=== PATIENT | male | born 1970 | race Caucasian/White ===

== ENCOUNTER 2020-11-15 07:18 | Outpatient (CLI) | payer MEDICAID ==
[~2020-11-15] VITALS: Ht 177.8 cm; Wt 112.9 kg
[2020-11-15] VITALS (8 sets, daily range): BP systolic 116–130; BP diastolic 73–98; PULSE 75–80; TEMP 98.1
[~2020-11-15 07:18] MED LIST: CLARITIN 1010 MG/TAB PO; EFFEXOR-XR150 MG PO; FIORICET 325 MG1 TAB PO; KOMBIGLYZE XR 11 TE1 PO; LANTUS100 U/ML SC; METFORMIN HCL500 M1 PO; PHENERGAN 25 TA25 MG PO; PROMETHAZINE12.5 M5 PO; VITAMIN C500 MG PO; VITAMIN D1000 IU PO; WELCHOL 625MG625 MG PO; ZESTRIL 20MG TA20 MG PO
[2020-11-15] MEDS ORDERED: MOBIC15 MG PO (08:17)
[2020-11-15] MEDS ORDERED: TRULICITY3 MG/0.5 M SQ (08:17)
[2020-11-15] MEDS ORDERED: NORCO 325 MG-51 TAB PO (08:18)
[2020-11-15] MEDS ORDERED: NATURAL MAGNES200 MG PO (08:19)
[2020-11-15] MEDS ORDERED: MEN'S ONE DAIL1 EACH PO (08:19)
[2020-11-15 08:20] LABS: HEMATOCRIT 51.1 % (42.0-52.0); HEMOGLOBIN 17.7 g/dl (13.5-18.0); MEAN CELL VOLUME 92 fl (80.0-100.0); MEAN CORPUSCULAR HEMOGLOBIN 32 pg (27.0-31.0); MEAN CORPUSCULAR HGB CONC 35 g/dl (33.0-37.0); PLATELET COUNT 185 K/mm3 (130-400); RED BLOOD COUNT 5.53 M/mm3 (4.20-5.60); REDCELL DISTRIBUTION WIDTH-CV 12.6 % (11.5-14.5)
[2020-11-15] MEDS ORDERED: FARXIGA10 PO (08:20)
[2020-11-15] MEDS ORDERED: ZESTRIL 5MG5 MG PO (08:20)
[2020-11-15] MEDS ORDERED: ASPI325T6 PO (08:20)
[2020-11-15 08:21] LABS: ALBUMIN 4.3 gm/dL (3.5-5.0); BILIRUBIN,TOTAL 0.8 mg/dL (0.0-1.0); CREATININE, serum 0.69 (0.66-1.25); MAGNESIUM 1.9 mg/dL (1.6-2.3)
[2020-11-15] MEDS ORDERED: NEURONTIN400 MG/CAP PO (08:21)
[2020-11-15] MEDS ORDERED: LANTUS100 U/ML SQ (08:21)
[2020-11-15 08:23] LABS: INR 1.1 (0.8-3.0); PROTHROMBIN TIME 12.1 SECONDS (9.7-12.8)
[2020-11-15 09:05] LABS: THYROID STIMULATING HORMONE 2.3 uIU/mL (0.465-4.680)
--- NOTE | 2020-11-15 09:15 | NUR ---
Post DAVID report recieved from VIRAL Parks. laboratory miller nurse and Dr. Love now in room to complete loop placement.
[2020-11-15] MEDS ORDERED: CEPHALEXIN500 M1 PO (09:46)
--- NOTE | 2020-11-15 11:10 | NUR ---
DC instructions reviewed with pt and . Both express understanding. Dressing to loop recorder site remains clean, dry and intact. Home cares discussed. Pt taking PO fluids without difficulty. Steady on feet. IV DC'd with catheter intact. He is assisted out with loop equipment and personal belongings by wheelchair to 's car.
== END 2020-11-15 11:10 | disposition home or self-care (01) ==
LOC: COL.RAD 07:18
PROVIDERS: Internal Medicine Adult Congenital Heart Disease
DX: Z86.73 Personal history of transient ischemic attack (TIA), and cerebral infarction without residual deficits (principal)
CPT/HCPCS: C1764; J2704

== ENCOUNTER 2021-03-20 15:10 | Emergency (ER) | payer MEDICAID ==
[~2021-03-20] VITALS: Ht 175.3 cm; Wt 108.2 kg
[~2021-03-20 15:10] MED LIST changes: +ASPI325T6 PO; +CEPHALEXIN500 M1 PO; +FARXIGA10 PO; +LANTUS100 U/ML SQ; +MEN'S ONE DAIL1 EACH PO; +MOBIC15 MG PO; +NATURAL MAGNES200 MG PO; +NEURONTIN400 MG/CAP PO; +NORCO 325 MG-51 TAB PO; +TRULICITY3 MG/0.5 M SQ; +ZESTRIL 5MG5 MG PO
[2021-03-20 15:25] VITALS: TEMP 98.3
[2021-03-20 15:57] LABS: BASO # 0.1 (0.0-0.2); EOS # 0.1 (0.0-0.7); GRAN # 3.1 (1.4-6.5); GRAN % 54.7 % (42.2-75.2); HEMATOCRIT 47.1 % (42.0-52.0); HEMOGLOBIN 16.4 g/dl (13.5-18.0); LYMPH # 1.9 (1.2-3.4); LYMPH % 32.6 % (20.0-51.0); MEAN CELL VOLUME 93 fl (80.0-100.0); MEAN CORPUSCULAR HEMOGLOBIN 32 pg (27.0-31.0); MEAN CORPUSCULAR HGB CONC 35 g/dl (33.0-37.0); MEAN PLATELET VOLUME 9.7 fl (7.4-10.4); MONO # 0.6 (0.1-0.6); MONO % 10.5 % (1.7-9.3); PLATELET COUNT 190 K/mm3 (130-400); RED BLOOD COUNT 5.08 M/mm3 (4.20-5.60); REDCELL DISTRIBUTION WIDTH-CV 11.9 % (11.5-14.5)
[2021-03-20 15:59] LABS: INR 1.1 (0.8-3.0); PROTHROMBIN TIME 12.3 SECONDS (9.7-12.8)
[2021-03-20 16:06] LABS: ALBUMIN 4.5 gm/dL (3.5-5.0); BILIRUBIN,TOTAL 0.6 mg/dL (0.2-1.2); C-REACTIVE PROTEIN 0.3 mg/dL (0.00-0.50); CREATININE, serum 0.87 mg/dL (0.72-1.25); POTASSIUM 4.2 mmol/L (3.5-4.5); TOTAL PROTEIN 8.4 gm/dL (6.2-8.1)
[2021-03-20 17:37] VITALS: BP 128/79; PULSE 69
== END 2021-03-20 17:42 | disposition home or self-care (01) ==
LOC: COL.ER 15:10
PROVIDERS: Family Medicine
DX: R41.3 Other amnesia (principal); R00.2 Palpitations; I10 Essential (primary) hypertension; E11.9 Type 2 diabetes mellitus without complications; Z79.899 Other long term (current) drug therapy; Z86.73 Personal history of transient ischemic attack (TIA), and cerebral infarction without residual deficits; Z79.4 Long term (current) use of insulin

== ENCOUNTER → 2021-08-26 | Outpatient (CLI) | payer MEDICAID ==
[2021-08-26 08:50] LABS: ARTERIAL BLD GAS O2 SATURATION 95.9 % (92-100); ARTERIAL BLOOD GAS BASE EXCESS 2.2 (-2-2); ARTERIAL BLOOD GAS HCO3 26.7 meq/L (22-26); ARTERIAL BLOOD GAS PCO2 41.3 mmHg (35-45); ARTERIAL BLOOD GAS PO2 73.9 mmHg (80-100); ARTERIAL BLOOD GAS pH 7.43 (7.35-7.45)
== END ==
LOC: COL.PUL 08:25
PROVIDERS: Internal Medicine Pulmonary Disease
DX: G47.31 Primary central sleep apnea (principal)

== ENCOUNTER 2021-12-11 07:50 | Emergency (ER) | payer MEDICAID ==
[~2021-12-11] VITALS: Ht 175.3 cm; Wt 113.6 kg
[2021-12-11 07:55] VITALS: BP 130/78; TEMP 98.3
[2021-12-11 08:48] VITALS: PULSE 75
== END 2021-12-11 08:48 | disposition home or self-care (01) ==
LOC: COL.ER 07:50
DX: G89.18 Other acute postprocedural pain (principal); M79.672 Pain in left foot; Z87.891 Personal history of nicotine dependence; Z28.310 Unvaccinated for COVID-19
CPT/HCPCS: J2270; J2550